=== PATIENT | female | born 1965 | race Caucasian/White ===

== ENCOUNTER 2017-05-16 14:47 | Emergency (ER) | payer OTHER ==
[~2017-05-16] VITALS: Ht 152.4 cm; Wt 86.4 kg
[~2017-05-16 14:47] MED LIST: ALBUAER INH; CYM/30 PO
[2017-05-16 14:50] VITALS: Ht 152.4 cm; Wt 86.4 kg
--- NOTE | 2017-05-16 15:20 | EMERGENCY ROOM VISIT NOTE ---
ED Visit Note First contact with patient: 14:56 CHIEF COMPLAINT: Left shoulder pain, Left wrist pain HISTORY OF PRESENT ILLNESS: This 51-year-old female patient presents to the emergency department 5 days after a fall from her car, complaining of pain in the left shoulder and left wrist. The patient states she was attempting to get into her car on Thursday night, when she lost her balance and fell onto her left side. The patient states she did go to work that night, and the next morning did follow up with her PCP. The patient states her biggest concern at that time was left wrist pain, so only had the wrist x-rayed. The patient states the radiologist contacted the patient yesterday and recommended a CT scan of the left hand due to a possible fracture. The patient states her shoulder has not been imaged. The patient states her PCP told her she would schedule the CT scan, however the patient has not gotten a call with this appointment yet. The patient would like to have the rest CT scanned here in the emergency department to verify a fracture. There is very mild limitation of motion of the arm because of the pain in the shoulder. The pain is moderate, constant and increases with motion of the hand and arm. The patient states the pain is throbbing and 7/10. The patient has taken nothing for relief of the pain. No previous significant previous shoulder disease or injury. The patient reports a numbness in her left hand and wrist, radiating upwards approximately [facility] up her forearm. The patient does have sensation here. She states the pain in her left wrist is worse with movement of the wrist, but improves with rest. The patient has not been wearing a splint. The patient denies any redness. The patient states the swelling has gone down significantly since the initial injury. No tingling. No neck or back pain. No chest pain or shortness of breath. No abdominal pain or nausea/vomiting. No cough. REVIEW OF SYSTEMS: A 6 system review of systems was performed with positives and pertinent negatives in the HPI. ALLERGIES: Ranitidine MEDICATIONS: Celexa, lisinopril, amlodipine, albuterol, and Dulera PMH: Hypertension, asthma, fibromyalgia SOCIAL HISTORY: Patient lives locally with family. She denies drug, alcohol, tobacco use. PHYSICAL EXAM: Vital Signs: Reviewed nurse's notes, vital signs stable. GENERAL : This is a 51-year-old female, in no acute distress, but appears to be in pain , well-developed, well-nourished. MUSCULOSKELETAL: There is no deformity in the contour of the left shoulder and there are no luis enrique deformities noted. There is no sulcus sign. There is tenderness over the shoulder joint. The patient's range of motion is full. Supraspinatus strength 5/5. There is no clavicle tenderness. No tenderness of the humerus, elbow, wrist, or hand. Spanish Teacher strength 5 /5. Radial pulse 2+. NECK: No tenderness to palpation over the cervical spine. There are muscle spasms radiating from the neck towards the shoulder. There is tenderness on the lateral aspect of the left wrist. There is no hand tenderness. The patient does have full range of motion of the left hand and wrist. Radial pulse 2+. There is no obvious swelling or redness. HEART: Regular rate and rhythm without murmurs gallops or rubs. LUNGS: Clear to auscultation bilaterally without wheezes, rales or rhonchi. No accessory muscle use. No retractions. NEURO: The patient is alert and oriented to person, place, and time. Normal sensation to light and sharp touch. Capillary refill less than 2 seconds. RADIOLOGY: X-Ray Left Shoulder: FINDINGS: Mild glenohumeral and acromioclavicular osteoarthritis is noted. Subcortical cystic changes involve the greater tuberosity. No acute fracture or dislocation. Calcific granuloma of the left upper lobe is noted. IMPRESSION: Degenerative changes of the left shoulder without acute fracture or dislocation. EMERGENCY DEPARTMENT COURSE: I examined the patient. An X-ray of the left shoulder was reviewed by myself and radiologist and shows no acute fracture or dislocation. I discussed with the patient that a CT scan of the left wrist is not going to change the course of treatment at this time, and she will still have to follow up with orthopedics. She states she will forego the CT scan at this time, and she was placed in a thumb spica splint. I offered the patient a shoulder sling for comfort, and she declines. Discharge instructions were reviewed with the patient, and I encouraged her to follow up with orthopedics. The patient was discharged home in good condition. DIFFERENTIAL DIAGNOSIS: Shoulder strain, shoulder sprain, rotator cuff tear, fracture, wrist sprain, strain, scaphoid fracture, metacarpal fracture, contusion, and others. DIAGNOSIS: Shoulder contusion and possible left scaphoid fracture DISCHARGE INSTRUCTIONS & TREATMENT: ORTHOPEDIC INSTRUCTIONS: Ibuprofen(Motrin, Advil) may be used for fever or pain. Use 600mg every six hours as needed. Take with food. Avoid using more than 2400mg in a 24 hour period. Do not use 2400mg per day for more than three consecutive days without physician direction. Prolonged inappropriate use can lead to stomach upset or ulcers. (AND/OR) Acetaminophen(Tylenol) may be used for fever or pain. Use 1000mg every six hours as needed. Avoid using more than 3000mg in a 24 hour period. Ice compresses for 20 minutes at a time four times daily for 2-3 days. Rest and elevate your injury. Do not get the splint wet, but keep it in place until your follow-up with orthopedics. If your splint feels excessively tight, you have worsening pain, develop numbness or tingling, or your digits appear blue, loosen the splint. If your symptoms are not quickly relieved return to the ER for re-evaluation. Return to the ER immediately for any numbness, tingling, severe pain, extreme swelling in the extremity or as needed. Call [facility], [phone], on Thursday to arrange follow up for your injury. They will perform an outpatient CT Scan if necessary. Follow-up with your primary care physician in 2 to 3 days for a recheck of your current condition. Problem List Medical Problems: (1) Asthma, moderate persistent Status: Chronic (2) Fibromyalgia Status: Chronic Surgical Problems: (1) H/O thumb surgery Status: Chronic (2) S/P partial hysterectomy Status: Chronic (3) S/P rotator cuff repair Permanent Comment: BL Status: Chronic (4) S/P trigger finger release Status: Chronic Current/Historical Medications Scheduled Amlodipine Besylate (Amlodipine Besylate), 5 MG PO DAILY Citalopram Hydrobromide (Celexa), 20 MG PO DAILY Lisinopril (Lisinopril), 20 MG PO DAILY Mometasone Furoate-Formoterol (Dulera 200/5 Mcg), 2 PUFFS INH BID Scheduled PRN Albuterol Hfa (Ventolin Hfa), 2 PUFFS INH Q4 PRN for Wheezing Naproxen Tab (Naprosyn), 250 MG PO BID PRN for Pain Promethazine Hcl (Phenergan), 25 MG PO Q6H PRN for Nausea Miscellaneous Medications B-Complex W/ Folic Acid (B Complex) Allergies Coded Allergies: Ranitidine (Unverified Allergy, Unknown, hives, 04/05/16) Vital Signs Date Time Temp Pulse Resp B/P (MAP) Pulse Ox O2 Delivery O2 Flow Rate FiO2 05/16/17 15:56 36.8 77 16 153/91 98 05/16/17 14:50 36.8 77 16 153/91 98 Room Air Departure Information Impression Primary Impression: Fall Additional Impressions: Shoulder contusion Wrist pain, acute Dispostion Home / Self-Care Condition GOOD Referrals No Doctor, Assigned (PCP) Jacob Fonseca MD Patient Instructions ED Contusion Shoulder, ED Fx Wrist General, [facility] Additional Instructions ORTHOPEDIC INSTRUCTIONS: Ibuprofen(Motrin, Advil) may be used for fever or pain. Use 600mg every six hours as needed. Take with food. Avoid using more than 2400mg in a 24 hour period. Do not use 2400mg per day for more than three consecutive days without physician direction. Prolonged inappropriate use can lead to stomach upset or ulcers. (AND/OR) Acetaminophen(Tylenol) may be used for fever or pain. Use 1000mg every six hours as needed. Avoid using more than 3000mg in a 24 hour period. Ice compresses for 20 minutes at a time four times daily for 2-3 days. Rest and elevate your injury. Do not get the splint wet, but keep it in place until your follow-up with orthopedics. If your splint feels excessively tight, you have worsening pain, develop numbness or tingling, or your digits appear blue, loosen the splint. If your symptoms are not quickly relieved return to the ER for re-evaluation. Return to the ER immediately for any numbness, tingling, severe pain, extreme swelling in the extremity or as needed. Call [facility], [phone], on Thursday to arrange follow up for your injury. They will perform an outpatient CT Scan if necessary. Follow-up with your primary care physician in 2 to 3 days for a recheck of your current condition. Problem Qualifiers Primary Impression: Fall Encounter type: initial encounter Qualified Codes: W19.XXXA - Unspecified fall, initial encounter Additional Impressions: Shoulder contusion Encounter type: initial encounter Laterality: left Qualified Codes: S40.012A - Contusion of left shoulder, initial encounter Wrist pain, acute Laterality: left Qualified Codes: M25.532 - Pain in left wrist
[2017-05-16] MEDS ORDERED: CITA20TA9 PO (15:24)
[2017-05-16] MEDS ORDERED: VNTHFA/IN INH (15:24)
[2017-05-16] MEDS ORDERED: LSN20 PO (15:24)
[2017-05-16] MEDS ORDERED: NRV/5 PO (15:24)
--- NOTE | 2017-05-16 15:36 | DIAGNOSTIC IMAGING REPORT ---
LEFT SHOULDER MIN 2 VIEWS ROUTINE HISTORY: 51 years-old Female left shoulder pain, s/p fall onto left side acute left shoulder pain status post fall. COMPARISON: Chest radiograph 09/28/2015 TECHNIQUE: 3 views of the left shoulder FINDINGS: Mild glenohumeral and acromioclavicular osteoarthritis is noted. Subcortical cystic changes involve the greater tuberosity. No acute fracture or dislocation. Calcific granuloma of the left upper lobe is noted. IMPRESSION: Degenerative changes of the left shoulder without acute fracture or dislocation. The above report was generated using voice recognition software. It may contain grammatical, syntax or spelling errors. Electronically signed by: Zach Valiente M.D. 05/16/2017 3:35 PM Dictated Date/Time: 05/16/2017 3:33 PM
[2017-05-16 15:56] VITALS: BP 153/91; PULSE 77; TEMP 36.8; O2SAT 98
[2017-05-16] MEDS ORDERED: PROM25TA9 PO (17:21)
[2017-05-16] MEDS ORDERED: MOME200A INH (17:21)
[2017-05-16] MEDS ORDERED: NPR/250 PO (17:21)
[2017-05-16] MEDS ORDERED: B-COTAB53 (20:48)
== END 2017-05-16 15:57 | disposition home or self-care (01) ==
LOC: C.EDB 14:48 → C.EDD 15:57
DX: S40.012A Contusion of left shoulder, initial encounter (principal); M25.532 Pain in left wrist; V48.4XXA Person boarding or alighting a car injured in noncollision transport accident, initial encounter; Y92.9 Unspecified place or not applicable; I10 Essential (primary) hypertension; J45.909 Unspecified asthma, uncomplicated; M79.7 Fibromyalgia; Z79.899 Other long term (current) drug therapy

== ENCOUNTER 2017-10-19 10:49 | Emergency (ER) | payer OTHER ==
[~2017-10-19] VITALS: Ht 152.4 cm; Wt 84.7 kg
[~2017-10-19 10:49] MED LIST changes: -ALBUAER INH; +B-COTAB53; +CITA20TA9 PO; -CYM/30 PO; +LSN20 PO; +MOME200A INH; +NAPR250T3 PO; +NRV/5 PO; +PROM25TA9 PO; +VNTHFA/IN INH
[2017-10-19 11:21] VITALS: TEMP 37; Ht 152.4 cm; Wt 84.7 kg
[2017-10-19] MEDS ORDERED: SODIUM CHLORIDE 0.9% 1000ML 1,000 ML IV STA (13:02)
[2017-10-19] MEDS ORDERED: KETOROLAC TROMETHAMINE 30 MG/ML VIAL IV STA (13:02)
--- NOTE | 2017-10-19 13:20 | EMERGENCY ROOM VISIT NOTE ---
History Report prepared by Rere: Guillermina Ventura Under the Supervision of: Dr. Dixie Bagley M.D. First contact with patient: 12:49 Chief Complaint: DIARRHEA Stated Complaint: RECTAL BLEEDING, BACK PAIN, DIARRHEA 1 WK Nursing Triage Summary: "sick for a month". ear, eye and upper resp infection, placed on Amoxill. reports did not go away. placed on Levaquin and Prednisone. pt reports muffled right ear, nausea. pt reports has been vomiting, constipation. trying otc meds. "diarrhea because I've taken all of this stuff. I feel like something is there. I'm bleeding when I wipe". eating or drinking causing liquid stool. History of Present Illness The patient is a 51 year old female who presents to the Emergency Room with complaints of constant diarrhea beginning a week ago. The patient states she has been "sick" for about a month. The patient was recently diagnosed with a UTI and an ear infection. She states she was put on Amoxil 250 mg for it. She states the prescription was not working so she was then started on Levaquin and prednisone. She states she finished her Levaquin and prednisone. A week ago, the patient started to have nausea and was unable to pass a bowel movement. The patient reports she then started to took milk of magnesium and Collase. She states she then had episodes of vomiting which lead her to believe she had a "bowel obstruction". The patient states she has been having diarrhea. She reports feeling impacted. She states every time she "pushes" to pass a bowel movement she feels like she is going to have a "prolapse or hernia" She notes blood in her diarrhea, abdominal cramps and back pain. The patient denies any urinary symptoms. The patient has a history of fibromyalgia and hypertension. Source of History: patient Onset: a week ago Position: other (generalized) Quality: other (diarhea) Timing: constant Associated Symptoms: + abdominal pain, + back pain, + diarrhea, No urinary symptoms Review of Systems See HPI for pertinent positives & negatives. A total of 10 systems reviewed and were otherwise negative. Past Medical & Surgical Medical Problems: (1) Asthma, moderate persistent (2) Fibromyalgia Surgical Problems: (1) H/O thumb surgery (2) S/P partial hysterectomy (3) S/P rotator cuff repair (4) S/P trigger finger release Family History Diabetes mellitus Social History Smoking Status: Former Smoker Housing Status: lives with family Current/Historical Medications Scheduled Amlodipine Besylate (Amlodipine Besylate), 5 MG PO DAILY Citalopram Hydrobromide (Celexa), 20 MG PO DAILY Lisinopril (Lisinopril), 20 MG PO DAILY Mometasone Furoate-Formoterol (Dulera 200/5 Mcg), 2 PUFFS INH BID Scheduled PRN Albuterol Hfa (Ventolin Hfa), 2 PUFFS INH Q4 PRN for Wheezing Naproxen Tab (Naprosyn), 250 MG PO BID PRN for Pain Promethazine Hcl (Phenergan), 25 MG PO Q6H PRN for Nausea Miscellaneous Medications B-Complex W/ Folic Acid (B Complex) Allergies Coded Allergies: Ranitidine (Unverified Allergy, Unknown, hives, 10/19/17) Physical Exam Vital Signs Date Time Temp Pulse Resp B/P (MAP) Pulse Ox O2 Delivery O2 Flow Rate FiO2 10/19/17 15:44 78 16 146/72 100 10/19/17 14:55 78 18 144/74 99 Room Air 10/19/17 13:30 68 16 146/74 100 Room Air 10/19/17 11:21 37.0 76 18 157/79 97 Room Air Physical Exam Vital signs reviewed. General: Well-appearing female, in no significant distress. HEENT: No scleral icterus, PERRLA, neck supple. Atraumatic. Cardiovascular: Regular rate and rhythm, no extra sounds. Pulmonary: Clear to auscultation bilaterally, normal work of breathing. Abdomen: Mild lower abdominal tenderness. Soft, nondistended, positive bowel sounds. Musculoskeletal: Atraumatic, no peripheral edema. Neurologic: Patient awake alert and oriented x 3, full strength in all 4 extremities. Cranial nerves 2 through 12 grossly intact. Skin: Warm, dry, no rash Rectal: Some rectal pain on exam, no palpable mass, no fluctuance, no gross blood, no palpable stool. Medical Decision & Procedures ER Provider Diagnostic Interpretation: Radiology results as stated below per my review and radiologist interpretation: KUB FINDINGS: The soft tissues, psoas shadows, renal outlines and intestinal gas pattern appear normal. There is no evidence for bowel obstruction. No abnormal abdominal calcifications are seen. IMPRESSION: Normal study. The above report was generated using voice recognition software. It may contain grammatical, syntax or spelling errors. Electronically signed by: Chriss Dumont M.D. ABD/PELVIS IV CONTRAST ONLY FINDINGS: Lung bases are clear. Liver spleen and pancreas enhance uniformly. Kidneys negative for hydronephrosis. Small bowel pattern is nonobstructive. Mild hyperemia and wall edematous change of the bulk of the colon. This consistent with a nonspecific colitis. No evidence for abscess collection or obstructive change. Bladder is midline. No free fluid within the pelvic cul-de-sac. Inguinal regions are unremarkable. IMPRESSION: 1. Mild nonspecific generalized colitis. 2. Mild/moderate colonic wall thickening with no evidence for abscess collection or obstructive change. 3. No evidence for pneumatosis or free air. The above report was generated using voice recognition software. It may contain grammatical, syntax or spelling errors. Electronically signed by: Chriss Dumont M.D. Laboratory Results 10/19/17 13:10 Red Blood Count 4.75, Mean Corpuscular Volume 82.3, Mean Corpuscular Hemoglobin 27.2, Mean Corpuscular Hemoglobin Concent 33.0, Mean Platelet Volume 10.5, Neutrophils (%) (Auto) 68.6, Lymphocytes (%) (Auto) 19.2, Monocytes (%) (Auto) 7.5, Eosinophils (%) (Auto) 4.2, Basophils (%) (Auto) 0.2, Neutrophils # (Auto) 6.77, Lymphocytes # (Auto) 1.89, Monocytes # (Auto) 0.74, Eosinophils # (Auto) 0.41, Basophils # (Auto) 0.02 10/19/17 13:10 Test 10/19/17 13:10 10/19/17 15:19 White Blood Count 9.86 K/uL (4.8-10.8) Red Blood Count 4.75 M/uL (4.2-5.4) Hemoglobin 12.9 g/dL (12.0-16.0) Hematocrit 39.1 % (37-47) Mean Corpuscular Volume 82.3 fL (80-100) Mean Corpuscular Hemoglobin 27.2 pg (25-34) Mean Corpuscular Hemoglobin Concent 33.0 g/dl (32-36) Platelet Count 339 K/uL (130-400) Mean Platelet Volume 10.5 fL (7.4-10.4) Neutrophils (%) (Auto) 68.6 % Lymphocytes (%) (Auto) 19.2 % Monocytes (%) (Auto) 7.5 % Eosinophils (%) (Auto) 4.2 % Basophils (%) (Auto) 0.2 % Neutrophils # (Auto) 6.77 K/uL (1.4-6.5) Lymphocytes # (Auto) 1.89 K/uL (1.2-3.4) Monocytes # (Auto) 0.74 K/uL (0.11-0.59) Eosinophils # (Auto) 0.41 K/uL (0-0.5) Basophils # (Auto) 0.02 K/uL (0-0.2) RDW Standard Deviation 45.0 fL (36.4-46.3) RDW Coefficient of Variation 15.0 % (11.5-14.5) Immature Granulocyte % (Auto) 0.3 % Immature Granulocyte # (Auto) 0.03 K/uL (0.00-0.02) Anion Gap 7.0 mmol/L (3-11) Est Creatinine Clear Calc Drug Dose 72.2 ml/min Estimated GFR () 87.6 Estimated GFR (Non- 75.5 BUN/Creatinine Ratio 7.3 (10-20) Calcium Level 9.1 mg/dl (8.5-10.1) Total Bilirubin 0.4 mg/dl (0.2-1) Direct Bilirubin 0.1 mg/dl (0-0.2) Aspartate Amino Transf (AST/SGOT) 17 U/L (15-37) Alanine Aminotransferase (ALT/SGPT) 29 U/L (12-78) Alkaline Phosphatase 103 U/L (45-117) Total Protein 7.9 gm/dl (6.4-8.2) Albumin 3.5 gm/dl (3.4-5.0) Urine Color YELLOW Urine Appearance CLEAR (CLEAR) Urine pH 8.0 (4.5-7.5) Urine Specific [place] 1.010 (1.000-1.030) Urine Protein NEG (NEG) Urine Glucose (UA) NEG (NEG) Urine Ketones NEG (NEG) Urine Occult Blood NEG (NEG) Urine Nitrite NEG (NEG) Urine Bilirubin NEG (NEG) Urine Urobilinogen NEG (NEG) Urine Leukocyte Esterase NEG (NEG) Laboratory results per my review. Medications Administered Medications (Trade) Dose Ordered Sig/Marcy Route Start Time Stop Time Status Last Admin Dose Admin Sodium Chloride 1,000 ml @ 999 mls/hr Q1H1M STAT IV 10/19/17 13:02 10/19/17 14:02 DC 10/19/17 13:02 999 MLS/HR Ketorolac Tromethamine (Toradol Inj) 30 mg NOW STAT IV 10/19/17 13:02 10/19/17 13:04 DC 10/19/17 13:29 30 MG ED Course 1255: Past medical records reviewed. The patient was evaluated in room C7. A complete history and physical examination was performed. 1302: Ordered Toradol Inj 30 mg IV. Sodium Chloride 1000 ml @ 999 mls/hr IV 1514: I updated the patient on her test results. 1527: Upon reevaluation, the patient appeared to have improvement of her symptoms. I discussed findings with her. She verbalized agreement of the treatment plan. The patient was discharged home. Medical Decision Differential diagnosis: Etiologies such as functional constipation, impaction, obstruction, volvulus, metabolic abnormality, infection, neurologic, as well as others were entertained. This patient was evaluated and appeared to be in no significant distress. IV access was obtained and laboratory work was drawn. Rectal exam reveals no stool or palpable fluctuance in the rectal vault. She does have some tenderness on exam. Abdominal x-ray series reveals no evidence of obstruction or free air. Laboratory work is fairly unrevealing. UA is negative. The patient was not able to provide a stool specimen. CT scan of the abdomen and pelvis reveals a nonspecific mild colitis. This is likely laxative induced. The patient was advised to refrain from any further laxative therapy. She will drink plenty of clear fluids and increase the fiber in her diet. I do not suspect an acute infectious etiology. She'll follow-up with her primary care physician this week for reevaluation and return to the ER for worsening of symptoms or any medical concerns. Medication Reconcilliation Current Medication List: was personally reviewed by me Blood Pressure Screening Patient's blood pressure: Elevated blood pressure Blood pressure disposition: Elevated BP felt to be situational Impression Primary Impression: Laxative colitis Additional Impression: Spasm of bowel Scribe Attestation The scribe's documentation has been prepared under my direction and personally reviewed by me in its entirety. I confirm that the note above accurately reflects all work, treatment, procedures, and medical decision making performed by me. Departure Information Dispostion Home / Self-Care Referrals No Doctor, Assigned (PCP) Forms HOME CARE DOCUMENTATION FORM, IMPORTANT VISIT INFORMATION, WORK / SCHOOL INSTRUCTIONS Patient Instructions My [facility] Additional Instructions Drink plenty of clear fluids. Stop all laxatives. Increase the fiber in your diet. Tylenol 650 mg every 6 hours as needed for back pain. Follow-up with your physician this week for reevaluation. Return to the emergency department for worsening of symptoms or any medical concerns. Problem Qualifiers
[2017-10-19 14:12] LABS: BASO % 0.2 %; BASO ABS # 0.02 K/uL (0-0.2); EOS % 4.2 %; EOS ABS # 0.41 K/uL (0-0.5); HEMATOCRIT 39.1 % (37-47); HEMOGLOBIN 12.9 g/dL (12.0-16.0); IG# 0.03 K/uL (0.00-0.02); LYMPH % 19.2 %; LYMPH ABS # 1.89 K/uL (1.2-3.4); MEAN CELL VOLUME 82.3 fL (80-100); MEAN CORPUSCULAR HEMOGLOBIN 27.2 pg (25-34); MEAN PLATELET VOLUME 10.5 fL (7.4-10.4); MONO % 7.5 %; MONO ABS # 0.74 K/uL (0.11-0.59); NEUT % 68.6 %; NEUT ABS # 6.77 K/uL (1.4-6.5); PLATELET COUNT 339 K/uL (130-400); WHITE BLOOD COUNT 9.86 K/uL (4.8-10.8)
--- NOTE | 2017-10-19 14:25 | DIAGNOSTIC IMAGING REPORT ---
KUB CLINICAL HISTORY: abd pain, bloated pain. Nausea. COMPARISON STUDY: No previous studies for comparison. FINDINGS: The soft tissues, psoas shadows, renal outlines and intestinal gas pattern appear normal. There is no evidence for bowel obstruction. No abnormal abdominal calcifications are seen. IMPRESSION: Normal study. The above report was generated using voice recognition software. It may contain grammatical, syntax or spelling errors. Electronically signed by: Chriss Dumont M.D. 10/19/2017 2:23 PM Dictated Date/Time: 10/19/2017 2:23 PM
[2017-10-19 14:34] LABS: ALBUMIN 3.5 gm/dl (3.4-5.0); CALCIUM 9.1 mg/dl (8.5-10.1); CREATININE 0.88 mg/dl (0.60-1.20); POTASSIUM 3.3 mmol/L (3.5-5.1); TOTAL PROTEIN 7.9 gm/dl (6.4-8.2)
[2017-10-19] MEDS ORDERED: OPTIRAY 320 IV PRN (14:45)
--- NOTE | 2017-10-19 15:04 | DIAGNOSTIC IMAGING REPORT ---
ABD/PELVIS IV CONTRAST ONLY CT DOSE: 958.27 mGycm HISTORY: Pain low back and abd pain, diverticulitis TECHNIQUE: Multiaxial CT images of the abdomen and pelvis were performed following the use of intravenous contrast. A dose lowering technique was utilized adhering to the principles of ALARA. COMPARISON STUDY: 09/29/2015 FINDINGS: Lung bases are clear. Liver spleen and pancreas enhance uniformly. Kidneys negative for hydronephrosis. Small bowel pattern is nonobstructive. Mild hyperemia and wall edematous change of the bulk of the colon. This consistent with a nonspecific colitis. No evidence for abscess collection or obstructive change. Bladder is midline. No free fluid within the pelvic cul-de-sac. Inguinal regions are unremarkable. IMPRESSION: 1. Mild nonspecific generalized colitis. 2. Mild/moderate colonic wall thickening with no evidence for abscess collection or obstructive change. 3. No evidence for pneumatosis or free air. The above report was generated using voice recognition software. It may contain grammatical, syntax or spelling errors. Electronically signed by: Chriss Dumont M.D. 10/19/2017 3:02 PM Dictated Date/Time: 10/19/2017 3:00 PM
[2017-10-19 15:44] VITALS: BP 146/72; PULSE 78; O2SAT 100
== END 2017-10-19 15:44 | disposition home or self-care (01) ==
LOC: C.EDB 10:51 → C.EDC 15:44
DX: K52.9 Noninfective gastroenteritis and colitis, unspecified (principal); T47.4X5A Adverse effect of other laxatives, initial encounter; Z87.440 Personal history of urinary (tract) infections; J45.40 Moderate persistent asthma, uncomplicated; Z90.710 Acquired absence of both cervix and uterus; Z98.890 Other specified postprocedural states; Z83.3 Family history of diabetes mellitus